=== PATIENT | female | born 1985 | race Two or more races ===

== ENCOUNTER 2019-08-22 07:46 | Inpatient (IN) | payer OTHER ==
[~2019-08-22] VITALS: Ht 160 cm; Wt 63.5 kg
[2019-08-22] MEDS ORDERED: IBUPROFEN 400 MG TABLET. PO PRN (09:00)
[2019-08-22] MEDS ORDERED: TERBUTALINE 1 MG/ML VIAL. SQ PRN (09:00)
[2019-08-22] MEDS ORDERED: LIDOCAINE 1% PF 30 ML VIAL. INJ PRN (09:00)
[2019-08-22] MEDS ORDERED: OXYTOCIN 30 UNIT/500 ML PREMIX 500 ML IV PRN ×3 (09:00→18:30)
[2019-08-22] MEDS ORDERED: fentaNYL PF VIAL 100 MCG/2 ML VIAL IV PRN (09:00)
[2019-08-22] MEDS ORDERED: 0.9 % SODIUM CHLORIDE 10 ML DISP.SYRIN. IV PRN ×2 (09:00→18:30)
--- NOTE | 2019-08-22 09:27 | PDOC1 ---
OB - History Hx of Present Care: Good Care Ultrasounds: Normal mid trimester US Obstetrical Complications: None Medical Complications: None Past Family/Social History * Past Medical, Surgical, Family and Obstetric Histories reviewed from chart. Rubella: Immune RPR/VDRL: Negative GBS Status: Unknown HBsAG: Negative OB - Chief Complaint & HPI Date of Admission: Date of Admission: Aug 22, 2019 at 07:46 Chief Complaint/History : 1 Para: 0 EGA: 39 Reason for admission: rupture of membranes Admission Nurse Assessment Rev: Yes OB - Admission Exam Physical Exam HEENT: Normal Heart: Regular Rate Lungs: Clear Abdomen: Gravid, Non tender, Soft Extremities: Edema Reflexes: Normal Cervical Dilatation: 1cm Effacement: 50% Station: -3 Amniotic Fluid: Clear Heart Rate: Normal Accelerations: Accelerations Present Decelerations: No decelerations Contractions on Admission: >10 Minutes Apart Intensity: Mild Text A: 39 wks IUP SROM GBS unknown P: Admit labor management with pitocin. Start Pen G prophylaxis for GBS unknown status. RADHA KELLER Jr, MD Aug 22, 2019 09:27
[2019-08-22 09:30] LABS: BASO % 0 % (0-3); EOS % 0 % (0-3); HEMATOCRIT 37.2 % (36.0-47.0); HEMOGLOBIN 12.9 g/dL (12.0-15.5); LYMPH # 1.6 x10^3/uL (1.0-4.8); LYMPH % 16 % (24-48); MEAN CORPUSCULAR HEMOGLOBIN 33 pg (25-35); MEAN CORPUSCULAR HGB CONC 35 g/dL (31-37); MEAN CORPUSCULAR VOLUME 96 fL (79-100); MONO # 0.6 x10^3/uL (0.0-1.1); MONO % 6 % (0-9); NEUT # 7.7 x10^3/uL (1.8-7.7); NEUT % 77 % (31-73); PLATELET COUNT 167 x10^3/uL (140-400); RED BLOOD COUNT 3.89 x10^6/uL (3.50-5.40); RED CELL DISTRIBUTION WIDTH 12.7 % (11.5-14.5)
[2019-08-22 09:30] LABS: BILIRUBIN,URINE NEGATIVE (NEG); CLARITY,URINE CLEAR; COLOR,URINE YELLOW; NITRITE,URINE NEGATIVE (NEG); PROTEIN,URINE NEGATIVE (NEG-TRACE); UROBILINOGEN,URINE 0.2 mg/dL (0.2 mg/dL)
[2019-08-22] MEDS ORDERED: PENICILLIN G K 5,000,000 UNIT in IV DEXTROSE 5% 100ML 100 ML IV ONE (09:30)
--- NOTE | 2019-08-22 09:30 | RAD ---
Indication: Injury presentation. History of breech presentation. TECHNIQUE: Limited ultrasound OB COMPARISON: None FINDINGS: Single intrauterine seen in vertex presentation. Placenta is fundal in location. Heart rate 139 bpm. Low Amniotic fluid index measuring 1.6 cm. IMPRESSION: As above. Electronically signed by: Richard Levine DO (08/22/2019 9:27 AM) [facility]
[2019-08-22 09:47] LABS: BACTERIA,URINE FEW /HPF (0-FEW); RBC,URINE OCC /HPF (0-2); SQUAMOUS EPITHELIAL CELL,UR MANY /LPF; WBC,URINE OCC /HPF (0-4)
[2019-08-22] MEDS: IV RINGERS,LACTATED 1000ML 1,000 ML IV PRN ×2 (10:06→14:47)
[2019-08-22] MEDS ORDERED: PENICILLIN G K 2,500,000 UNIT in IV DEXTROSE 5% 50 ML IV SCH (13:00)
[2019-08-22] MEDS ORDERED: PANTOPRAZOLE 40 MG TABLET.DR. PO ONE ×3 (13:00→18:30)
--- NOTE | 2019-08-22 18:19 | PDOC ---
VAGINAL DELIVERY DATE DATE: 08/22/19 TIME: 18:12 : 1 Para: 1 EGA: 39 VAGINAL DELIVERY: VTX VACCUM ASSISTED: Yes NUMBER OF PULLS two NUMBER OF POP OFFS none MAXIMUM PRESSURE 600 mmhg PLACENTA: Spontaneous 8/9 SEX: Male WEIGHT Weight [3470 gm ] Nuchal Cord: No Amniotic Fluid: Clear PAIN: Natural EPISIOTOMY: No EXTENSION: Yes (2nd degree midline laceration and Left vaginal sidewall laceration) REPAIRED WITH 2-0 vicryl EBL 400 ml COMPLICATIONS none CONDITION stable Signs of Intrauterine Infectio: None Shoulder Dystocia: No, Suprapubic Pressure (poor maternal pushing efforts) RADHA KELLER Jr, MD Aug 22, 2019 18:19
[2019-08-22] MEDS ORDERED: PHENYLEPH/MINERAL OIL/PETROLAT RECTAL OINTMENT TUBE. RC PRN (18:30)
[2019-08-22] MEDS ORDERED: FAMOTIDINE 20 MG TABLET. PO ONE (18:30)
[2019-08-22] MEDS ORDERED: MMR per PROTOCOL. MC PRN (18:30)
[2019-08-22] MEDS ORDERED: SIMETHICONE 80 MG TAB.CHEW PO PRN (18:30)
[2019-08-22] MEDS ORDERED: ACETAMINOPHEN 325 MG TABLET. PO PRN (18:30)
[2019-08-22] MEDS ORDERED: HYDROCORTISONE 1% TOPICAL OINTMENT 30GM TUBE. TP PRN (18:30)
[2019-08-22] MEDS ORDERED: MAG HYDROX/ALUMINUM HYD/SIMETH 30 ML ORAL.SUSP PO PRN (18:30)
[2019-08-22] MEDS ORDERED: diphenhydrAMINE HCL 25 MG CAPSULE PO PRN (18:30)
[2019-08-22] MEDS ORDERED: BENZOCAINE 20% TOPICAL AEROSOL SPRAY 57GM CAN. TP PRN (18:30)
[2019-08-22] MEDS ORDERED: oxyCODONE/APAP 5/325 1 TAB TABLET PO PRN (18:30)
[2019-08-22] MEDS ORDERED: MAGNESIUM HYDROXIDE 2,400 MG/30 ML ORAL.SUSP. PO PRN (18:30)
[2019-08-22] MEDS ORDERED: ZOLPIDEM 5 MG TABLET. PO PRN (18:30)
[2019-08-22 20:16] VITALS: BP 125/74
[2019-08-22 21:00] VITALS: BP 131/65
[2019-08-22 22:25] VITALS: BP 107/55
[2019-08-22] MEDS: IBUPROFEN 400 MG TABLET. PO PRN (23:49)
[2019-08-23 02:00] VITALS: BP 112/52
[2019-08-23 05:46] LABS: BASO % 0 % (0-3); EOS % 0 % (0-3); HEMATOCRIT 30.4 % (36.0-47.0); HEMOGLOBIN 10.8 g/dL (12.0-15.5); LYMPH # 1.6 x10^3/uL (1.0-4.8); LYMPH % 10 % (24-48); MEAN CORPUSCULAR HEMOGLOBIN 34 pg (25-35); MEAN CORPUSCULAR HGB CONC 36 g/dL (31-37); MEAN CORPUSCULAR VOLUME 95 fL (79-100); MONO # 1.2 x10^3/uL (0.0-1.1); MONO % 7 % (0-9); NEUT % 83 % (31-73); PLATELET COUNT 118 x10^3/uL (140-400); RED BLOOD COUNT 3.21 x10^6/uL (3.50-5.40); RED CELL DISTRIBUTION WIDTH 13.1 % (11.5-14.5); WHITE BLOOD COUNT 15.7 x10^3/uL (4.0-11.0)
[2019-08-23 06:18] VITALS: BP 99/58
[2019-08-23 07:04] LABS: % BANDS 11 % (0-9); % LYMPHS 9 % (24-48); % MONOS 5 % (0-10); % SEGS 75 % (35-66)
[2019-08-23 07:05] LABS: PLT ESTIMATE DECREASED (ADEQUATE)
[2019-08-23] MEDS: FERROUS SULFATE 325 MG TABLET. PO SCH ×2 (08:00→17:00)
[2019-08-23 08:10] VITALS: BP 114/56
[2019-08-23] MEDS: DOCUSATE SODIUM 100 MG CAPSULE. PO PRN ×2 (08:30→17:04)
[2019-08-23 12:10] VITALS: BP 105/58
[2019-08-23 17:00] VITALS: BP 122/66
--- NOTE | 2019-08-23 18:06 | PDOC ---
OB Progress Note Date of Service 08/23/19 Time of Evaluation 1805 Notes Pt. feeling well. Polanco in place due to periurethral edema. Lab Laboratory Tests Test 08/22/19 07:55 08/22/19 08:37 08/23/19 05:10 Urine Collection Type Void Urine Color Yellow Urine Clarity Clear Urine pH 6.0 Urine Specific [place] 1.020 Urine Protein Negative mg/dL (NEG-TRACE) Urine Glucose (UA) Negative mg/dL (NEG) Urine Ketones (Stick) Negative mg/dL (NEG) Urine Blood Small (NEG) Urine Nitrite Negative (NEG) Urine Bilirubin Negative (NEG) Urine Urobilinogen Dipstick 0.2 mg/dL (0.2 mg/dL) Urine Leukocyte Esterase Negative (NEG) Urine RBC Occ /HPF (0-2) Urine WBC Occ /HPF (0-4) Urine Squamous Epithelial Cells Many /LPF Urine Bacteria Few /HPF (0-FEW) Urine Mucus Mod /LPF White Blood Count 10.0 x10^3/uL (4.0-11.0) 15.7 x10^3/uL (4.0-11.0) Red Blood Count 3.89 x10^6/uL (3.50-5.40) 3.21 x10^6/uL (3.50-5.40) Hemoglobin 12.9 g/dL (12.0-15.5) 10.8 g/dL (12.0-15.5) Hematocrit 37.2 % (36.0-47.0) 30.4 % (36.0-47.0) Mean Corpuscular Volume 96 fL (79-100) 95 fL (79-100) Mean Corpuscular Hemoglobin 33 pg (25-35) 34 pg (25-35) Mean Corpuscular Hemoglobin Concent 35 g/dL (31-37) 36 g/dL (31-37) Red Cell Distribution Width 12.7 % (11.5-14.5) 13.1 % (11.5-14.5) Platelet Count 167 x10^3/uL (140-400) 118 x10^3/uL (140-400) Neutrophils (%) (Auto) 77 % (31-73) 83 % (31-73) Lymphocytes (%) (Auto) 16 % (24-48) 10 % (24-48) Monocytes (%) (Auto) 6 % (0-9) 7 % (0-9) Eosinophils (%) (Auto) 0 % (0-3) 0 % (0-3) Basophils (%) (Auto) 0 % (0-3) 0 % (0-3) Neutrophils # (Auto) 7.7 x10^3/uL (1.8-7.7) 13.0 x10^3/uL (1.8-7.7) Lymphocytes # (Auto) 1.6 x10^3/uL (1.0-4.8) 1.6 x10^3/uL (1.0-4.8) Monocytes # (Auto) 0.6 x10^3/uL (0.0-1.1) 1.2 x10^3/uL (0.0-1.1) Eosinophils # (Auto) 0.0 x10^3/uL (0.0-0.7) 0.0 x10^3/uL (0.0-0.7) Basophils # (Auto) 0.0 x10^3/uL (0.0-0.2) 0.0 x10^3/uL (0.0-0.2) Treponema pallidum Antibody Nonreactive (Nonreactive) Segmented Neutrophils % 75 % (35-66) Band Neutrophils % 11 % (0-9) Lymphocytes % 9 % (24-48) Monocytes % 5 % (0-10) Platelet Estimate Decreased (ADEQUATE) Laboratory Tests Test 08/23/19 05:10 White Blood Count 15.7 x10^3/uL (4.0-11.0) Red Blood Count 3.21 x10^6/uL (3.50-5.40) Hemoglobin 10.8 g/dL (12.0-15.5) Hematocrit 30.4 % (36.0-47.0) Mean Corpuscular Volume 95 fL (79-100) Mean Corpuscular Hemoglobin 34 pg (25-35) Mean Corpuscular Hemoglobin Concent 36 g/dL (31-37) Red Cell Distribution Width 13.1 % (11.5-14.5) Platelet Count 118 x10^3/uL (140-400) Neutrophils (%) (Auto) 83 % (31-73) Lymphocytes (%) (Auto) 10 % (24-48) Monocytes (%) (Auto) 7 % (0-9) Eosinophils (%) (Auto) 0 % (0-3) Basophils (%) (Auto) 0 % (0-3) Neutrophils # (Auto) 13.0 x10^3/uL (1.8-7.7) Lymphocytes # (Auto) 1.6 x10^3/uL (1.0-4.8) Monocytes # (Auto) 1.2 x10^3/uL (0.0-1.1) Eosinophils # (Auto) 0.0 x10^3/uL (0.0-0.7) Basophils # (Auto) 0.0 x10^3/uL (0.0-0.2) Segmented Neutrophils % 75 % (35-66) Band Neutrophils % 11 % (0-9) Lymphocytes % 9 % (24-48) Monocytes % 5 % (0-10) Platelet Estimate Decreased (ADEQUATE) Medications Current Medications Sodium Chloride (Normal Saline Flush) 3 ml QSHIFT PRN IV AFTER MEDS AND BLOOD DRAWS; Start 08/22/19 at 09:00 Ringer's Solution 1,000 ml @ 125 mls/hr Q8H PRN IV PER PROTOCOL Last administered on 08/22/19at 14:47; Start 08/22/19 at 09:00; Stop 08/22/19 at 21:25; Status DC Fentanyl Citrate (Fentanyl 2ml Vial) 100 mcg PRN Q10MIN PRN IV Labor pain Last administered on 08/22/19at 14:56; Start 08/22/19 at 09:00 Terbutaline Sulfate (Brethine) 0.25 mg 1X PRN PRN SQ SEE COMMENTS; Start 08/22/19 at 09:00; Stop 08/23/19 at 08:59; Status DC Lidocaine HCl (Xylocaine 1% Pf 30ml Vial) 30 ml 1X PRN PRN INJ SEE COMMENTS Last administered on 08/22/19at 18:32; Start 08/22/19 at 09:00; Stop 08/24/19 at 08:59 Oxytocin/Sodium Chloride 500 ml @ 0 mls/hr CONT PRN IV SEE I/O RECORD Last administered on 08/22/19at 10:07; Start 08/22/19 at 09:00 Oxytocin/Sodium Chloride 500 ml @ 0 mls/hr CONT PRN PRN IV Post delivery bleeding; Start 08/22/19 at 09:00; Stop 08/22/19 at 21:26; Status DC Ibuprofen (Motrin) 800 mg PRN Q6HRS PRN PO MODERATE PAIN Last administered on 08/23/19at 08:33; Start 08/22/19 at 09:00; Stop 08/23/19 at 09:31; Status DC Penicillin G Potassium 9122803 unit/Dextrose 100 ml @ 100 mls/hr 1X ONCE IV ; Start 08/22/19 at 09:30; Stop 08/22/19 at 10:29; Status DC Penicillin G Potassium [id number] unit/Dextrose 50 ml @ 100 mls/hr Q4H IV ; Start 08/22/19 at 13:00; Stop 08/22/19 at 21:24; Status DC Pantoprazole Sodium (Protonix) 40 mg 1X ONCE PO Last administered on 08/22/19at 13:21; Start 08/22/19 at 13:00; Stop 08/22/19 at 13:11; Status DC Sodium Chloride (Normal Saline Flush) 10 ml QSHIFT PRN IV AFTER MEDS AND BLOOD DRAWS; Start 08/22/19 at 18:30 Oxytocin/Sodium Chloride 500 ml @ 62.5 mls/hr CONT PRN IV SEE I/O RECORD; Start 08/22/19 at 18:30; Stop 08/23/19 at 02:29; Status DC Acetaminophen (Tylenol) 650 mg PRN Q6HRS PRN PO MILD PAIN / TEMP; Start 08/22/19 at 18:30 Ibuprofen (Motrin) 800 mg PRN Q8HRS PRN PO INFLAMMATION/PAIN PREVENTION Last administered on 08/22/19at 23:49; Start 08/22/19 at 18:30 Docusate Sodium (Colace) 100 mg PRN BID PRN PO CONSTIPATION Last administered on 08/23/19at 17:04; Start 08/22/19 at 18:30 Magnesium Hydroxide (Milk Of Magnesia) 2,400 mg PRN DAILY PRN PO CONSTIPATION; Start 08/22/19 at 18:30 Al Hydroxide/Mg Hydroxide (Mylanta Plus Xs) 30 ml PRN Q4HRS PRN PO HEARTBURN / GAS; Start 08/22/19 at 18:30 Simethicone (Gas-X) 80 mg PRN AFTMEALHC PRN PO GAS / BLOATING; Start 08/22/19 at 18:30 Diphenhydramine HCl (Benadryl) 25 mg PRN Q6HRS PRN PO ITCHING; Start 08/22/19 at 18:30 Benzocaine (Americaine) 1 spray PRN QID PRN TP TOPICAL PAIN; Start 08/22/19 at 18:30 Phenyleph/Shark Oil/Min Oil/Petrol (Preparation H) 1 chantelle PRN QID PRN RC RECTAL PAIN; Start 08/22/19 at 18:30 Hydrocortisone (Cortaid) 1 chantelle PRN QID PRN TP PERINEAL PAIN; Start 08/22/19 at 18:30 Ferrous Sulfate (Feosol) 325 mg BIDWMEALS PO ; Start 08/23/19 at 08:00 Zolpidem Tartrate (Ambien) 5 mg PRN QHS PRN PO INSOMNIA, MAY REPEAT X1; Start 08/22/19 at 18:30 Info (Do NOT chart on this placeholder) 1 ea 1X PRN PRN MC SEE COMMENTS; Start 08/22/19 at 18:30 Info (Do NOT chart on this placeholder) 1 ea 1X PRN PRN MC SEE COMMENTS; Start 08/22/19 at 18:30 Oxycodone/ Acetaminophen (Percocet 5/325) 2 tab PRN Q4HRS PRN PO MODERATE PAIN, SEVERE PAIN; Start 08/22/19 at 18:30 Famotidine (Pepcid) 40 mg 1X ONCE PO ; Start 08/22/19 at 18:30; Stop 08/22/19 at 18:31; Status UNV Pantoprazole Sodium (Protonix) 40 mg 1X ONCE PO Last administered on 08/22/19at 18:32; Start 08/22/19 at 18:30; Stop 08/22/19 at 18:42; Status DC Pantoprazole Sodium (Protonix) 40 mg 1X ONCE PO ; Start 08/22/19 at 18:30; Stop 08/22/19 at 18:41; Status DC Exam Abd: soft, mild tendernes, fundus firm Pelvic: edema improved. Polanco in place in draining well. Assessment PPD#1 s/p Plan of Care: Continue current Tx, Mgmt (Remove polanco in am.) RADHA KELLER Jr, MD Aug 23, 2019 18:06
[2019-08-23 20:45] VITALS: BP 116/65
[2019-08-24 04:00] VITALS: BP 111/59
--- NOTE | 2019-08-24 08:13 | PDOC3 ---
OB DISCHARGE SUMMARY DATE OF ADMISSION: 08/22/19 DATE OF DISCHARGE: 08/24/19 REASON FOR ADMISSION: Onset of labor INTRAPARTUM PROCEDURES: Spontanous Vag Deliv DISCHARGE DIAGNOSIS: Term Delivered DISCHARGE INFORMATION: Activity (ad nidia), Diet (regular), Instructions (pelvic rest x 6 wks) HOSPITAL COURSE Term gestation delivered vaginally without complications. RADHA KELLER Jr, MD Aug 24, 2019 08:13
[2019-08-24] MEDS ORDERED: IBUP-1027 PO (08:14)
--- NOTE | 2019-08-24 08:15 | DISCH ---
DISCHARGE INSTRUCTIONS Condition on Discharge Condition on Discharge: Stable Activity After Discharge Activity Instructions for Disc: Activity as tolerated Lifting Instructions after Dis: No heavy lifting Driving Instructions after Dis: Do not drive today Diet after Discharge Diet after Discharge: Regular Contacting the DRAnjana after DC Call your doctor for: Concerns you may have Follow-Up Follow up with: Jj in 6 wks RADHA KELLER Jr, MD Aug 24, 2019 08:14
[2019-08-24] MEDS: IBUPROFEN 400 MG TABLET. PO PRN (12:33)
[2019-08-24] MEDS: DOCUSATE SODIUM 100 MG CAPSULE. PO PRN (12:33)
[2019-08-24 12:45] VITALS: BP 122/79
--- NOTE | 2019-08-24 12:48 | NUR ---
Discharge Discharge instructions given to patient at this time, no questions or concerns noted. To follow up in 6 weeks at [facility].
== END 2019-08-24 13:59 | disposition home or self-care (01) | DRG 806 ==
LOC: 3 SO LND 07:46 → OBSVTOIN 07:46 → 3 NORTH 21:00
PROVIDERS: ADMIT Obstetrics & Gynecology; ATTEND Obstetrics & Gynecology
PROC: 10D07Z6 Extraction of Products of Conception, Vacuum, Via Natural or Artificial Opening (ICD-10-PCS; principal; 2019-08-22)
PROC: 0KQM0ZZ Repair Perineum Muscle, Open Approach (ICD-10-PCS; 2019-08-22)
DX: O70.1 Second degree perineal laceration during delivery (principal); R71.0 Precipitous drop in hematocrit; Z37.0 Single live birth; Z3A.39 39 weeks gestation of pregnancy; O75.89 Other specified complications of labor and delivery
CPT/HCPCS: 36415; 76815; 81001; 85007; 85025; 86592; 86850; 86900; 86901; J2590; J3010; J7120; G0378

== ENCOUNTER 2022-03-10 17:41 | Inpatient (IN) | payer SELFPAY ==
[~2022-03-10] VITALS: Ht 158.5 cm; Wt 79.5 kg
[~2022-03-10 17:41] MED LIST: IBUP-1027 PO
[2022-03-10] MEDS ORDERED: IV RINGERS,LACTATED 1000ML 1,000 ML IV SCH ×2 (18:45→20:00)
[2022-03-10 19:18] LABS: BACTERIA,URINE MANY /HPF (0-FEW); RBC,URINE TNTC /HPF (0-2); WBC,URINE 20-40 /HPF (0-4)
[2022-03-10 19:30] VITALS: BP 130/65
[2022-03-10] MEDS ORDERED: OXYTOCIN 30 UNIT/500 ML PREMIX 500 ML IV PRN ×2 (20:00)
[2022-03-10] MEDS ORDERED: BUTORPHANOL 2 MG/ML VIAL. IVP PRN ×2 (20:00)
[2022-03-10] MEDS ORDERED: LIDOCAINE 1% PF 30 ML VIAL. INJ PRN (20:00)
[2022-03-10] MEDS ORDERED: ACETAMINOPHEN 325 MG TABLET. PO PRN (20:00)
[2022-03-10] MEDS ORDERED: 0.9 % SODIUM CHLORIDE 10 ML DISP.SYRIN. IV PRN (20:00)
[2022-03-10] MEDS ORDERED: TERBUTALINE 1 MG/ML VIAL. SQ PRN (20:00)
[2022-03-10 20:24] LABS: BASO % 0 % (0-3); EOS % 0 % (0-3); HEMATOCRIT 37.9 % (36.0-47.0); HEMOGLOBIN 13.4 g/dL (12.0-15.5); LYMPH # 1.8 x10^3/uL (1.0-4.8); LYMPH % 17 % (24-48); MEAN CORPUSCULAR HEMOGLOBIN 33 pg (25-35); MEAN CORPUSCULAR HGB CONC 36 g/dL (31-37); MEAN CORPUSCULAR VOLUME 94 fL (79-100); MONO # 0.7 x10^3/uL (0.0-1.1); MONO % 7 % (0-9); NEUT # 7.8 x10^3/uL (1.8-7.7); NEUT % 75 % (31-73); PLATELET COUNT 196 x10^3/uL (140-400); RED BLOOD COUNT 4.05 x10^6/uL (3.50-5.40); RED CELL DISTRIBUTION WIDTH 13.7 % (11.5-14.5); WHITE BLOOD COUNT 10.3 x10^3/uL (4.0-11.0)
[2022-03-10 21:59] LABS: INFLUENZA A PATIENT POSITIVE (NEGATIVE); INFLUENZA B PATIENT NEGATIVE (NEGATIVE)
[2022-03-11] VITALS (9 sets, daily range): BP systolic 102–128; BP diastolic 54–71
--- NOTE | 2022-03-11 00:18 | PDOC1 ---
[facility] H&P Date of Admission: Date of Admission: Mar 10, 2022 at 17:41 History of Present Illness: EDC: 03/17/22 LMP: 06/10/21 36y @ 39.1 by L=22 presents with ctxs. She was found to 3 cm on presentation. During her eval she had SROM and was subsequently admitted. The pt has had a relatively uncomplicated outside of her AMA. PMH: Denies PSH: Denies Meds: PNV All: NKDA OBHx: TSVD x 1 SH: no tob, no EtOH FH: noncontributory Medications: Meds: Current Medications Medications (Trade) Dose Ordered Sig/Christian Route PRN Reason Start Time Stop Time Status Last Admin Dose Admin Ringer's Solution 1,000 ml @ 125 mls/hr Q8H IV 03/10/22 20:00 03/10/22 21:12 Butorphanol Tartrate (Stadol) 2 mg PRN Q1HR PRN IVP Severe labor pain 03/10/22 20:00 03/10/22 22:22 Oxytocin 500 ml @ 0 mls/hr CONT PRN PRN IV Post delivery bleeding 03/10/22 20:00 03/10/22 23:51 Allergies: Coded Allergies: No Known Drug Allergies (Unverified , 08/22/19) Physical Exam: Vital Signs: Vital Signs Date Time Temp Pulse Resp B/P (MAP) Pulse Ox O2 Delivery O2 Flow Rate FiO2 03/10/22 22:22 20 Room Air PE: GENERAL: No apparent distress. Alert and oriented. HEENT: Head normocephalic, atraumatic. NECK: Supple LUNGS: Clear to auscultation. HEART: RRR, S1, S2 present, pulses intact ABDOMEN: Soft, positive bowel sounds. EXTREMITIES: No cyanosis or edema. NEUROLOGIC: Normal speech, normal tone PSYCHIATRIC: Normal affect, normal mood. SKIN: No ulceration. FHT: 150s +acels/no decels/mLTV [place]: 35 min SVE: 8/C/-1 Labs: Laboratory Tests Test 03/10/22 18:00 03/10/22 19:35 03/10/22 20:30 Urine Collection Type Unknown Urine Color (Auto) Light orange Urine Turbidity Hazy Urine pH (Auto) 5.5 (<5.0-8.0) Urine Specific [place] 1.011 (1.000-1.030) Urine Protein (Auto) Negative mg/dL (Negative) Urine Glucose (Auto)(UA) Negative mg/dL (Negative) Urine Ketones (Auto) 10 mg/dL (Negative) Urine Blood (Auto) Large (Negative) Urine Nitrite Negative (Negative) Urine Bilirubin (Auto) Negative (Negative) Urine Urobilinogen (Auto) Normal mg/dL (Normal) Urine Leukocyte Esterase (Auto) Moderate (Negative) Urine RBC Tntc /HPF (0-2) Urine WBC 20-40 /HPF (0-4) Urine Squamous Epithelial Cells Many /LPF Urine Bacteria Many /HPF (0-FEW) White Blood Count 10.3 x10^3/uL (4.0-11.0) Red Blood Count 4.05 x10^6/uL (3.50-5.40) Hemoglobin 13.4 g/dL (12.0-15.5) Hematocrit 37.9 % (36.0-47.0) Mean Corpuscular Volume 94 fL (79-100) Mean Corpuscular Hemoglobin 33 pg (25-35) Mean Corpuscular Hemoglobin Concent 36 g/dL (31-37) Red Cell Distribution Width 13.7 % (11.5-14.5) Platelet Count 196 x10^3/uL (140-400) Neutrophils (%) (Auto) 75 % (31-73) H Lymphocytes (%) (Auto) 17 % (24-48) L Monocytes (%) (Auto) 7 % (0-9) Eosinophils (%) (Auto) 0 % (0-3) Basophils (%) (Auto) 0 % (0-3) Neutrophils # (Auto) 7.8 x10^3/uL (1.8-7.7) H Lymphocytes # (Auto) 1.8 x10^3/uL (1.0-4.8) Monocytes # (Auto) 0.7 x10^3/uL (0.0-1.1) Eosinophils # (Auto) 0.0 x10^3/uL (0.0-0.7) Basophils # (Auto) 0.0 x10^3/uL (0.0-0.2) Treponema pallidum Antibody Nonreactive (Nonreactive) Influenza Type A Antigen Positive (NEGATIVE) Influenza Type B Antigen Negative (NEGATIVE) SARS-CoV-2 Antigen (Rapid) Negative (NEGATIVE) Laboratory Tests 03/10/22 19:35 Laboratory Tests 03/10/22 19:35 Assessment & Plan: A/P 36y @ 39.1 by L=22 1.) Active labor/SROM 2.) AMA 3.) Late presentation to care 4.) Elevated GTT - 1 of 4 values of the 3hr GTT elevated 5.) Covid vaccine 11/22/21 6.) TDAP given 12/27/21 7.) Flu vaccine given 12/27/21 8.) Fetus cat I FHT 9.) GBS neg ANITA RODAS MD Mar 11, 2022 00:18
--- NOTE | 2022-03-11 00:18 | PDOC4 ---
VAGINAL DELIVERY DATE DATE: 03/11/22 TIME: 00:18 TIME Patient delivered a viable female over intact perineum at 000.9 Wt 7 lb 1 oz. Apgars 8/9. Placenta delivered spontaneously, intact with 3VC. No lacerations noted. Good hemostasis noted. 20 U of Pit given with IVF. EBL 200 cc. WEIGHT Weight [ ] ANITA RODAS MD Mar 11, 2022 00:18
[2022-03-11] MEDS ORDERED: SIMETHICONE 80 MG TAB.CHEW PO PRN (00:30)
[2022-03-11] MEDS ORDERED: MMR per PROTOCOL. MC PRN (00:30)
[2022-03-11] MEDS ORDERED: HYDROCORTISONE 1% TOPICAL OINTMENT 30GM TUBE. TP PRN (00:30)
[2022-03-11] MEDS ORDERED: MAG HYDROX/ALUMINUM HYD/SIMETH 30 ML ORAL.SUSP PO PRN (00:30)
[2022-03-11] MEDS ORDERED: ZOLPIDEM 5 MG TABLET. PO PRN (00:30)
[2022-03-11] MEDS ORDERED: ACETAMINOPHEN 325 MG TABLET. PO PRN (00:30)
[2022-03-11] MEDS ORDERED: BENZOCAINE 20% TOPICAL AEROSOL SPRAY 57GM CAN. TP PRN (00:30)
[2022-03-11] MEDS ORDERED: MAGNESIUM HYDROXIDE 2,400 MG/30 ML ORAL.SUSP. PO PRN (00:30)
[2022-03-11] MEDS ORDERED: TDaP (BOOSTRIX) per PROTOCOL. MC PRN (00:30)
[2022-03-11] MEDS ORDERED: oxyCODONE/APAP 5/325 1 TAB TABLET PO PRN (00:30)
[2022-03-11] MEDS ORDERED: PHENYLEPH/MINERAL OIL/PETROLAT RECTAL OINTMENT TUBE. RC PRN (00:30)
[2022-03-11] MEDS ORDERED: 0.9 % SODIUM CHLORIDE 10 ML DISP.SYRIN. IV PRN (00:30)
[2022-03-11] MEDS ORDERED: OXYTOCIN 30 UNIT/500 ML PREMIX 500 ML IV PRN (00:30)
[2022-03-11] MEDS ORDERED: diphenhydrAMINE HCL 25 MG CAPSULE PO PRN (00:30)
[2022-03-11] MEDS: PRENATAL MULTIVITAMIN TABLET. PO SCH (08:53)
[2022-03-11] MEDS: DOCUSATE SODIUM 100 MG CAPSULE. PO PRN ×2 (08:53→17:38)
[2022-03-11] MEDS: IBUPROFEN 400 MG TABLET. PO PRN ×2 (08:54→17:39)
[2022-03-12 04:40] LABS: HEMATOCRIT 36.3 % (36.0-47.0); HEMOGLOBIN 12.5 g/dL (12.0-15.5); RED BLOOD COUNT 3.88 x10^6/uL (3.50-5.40); RED CELL DISTRIBUTION WIDTH 13.8 % (11.5-14.5)
[2022-03-12 05:05] VITALS: BP 118/67
[2022-03-12] MEDS: IBUPROFEN 400 MG TABLET. PO PRN ×2 (05:43→14:14)
--- NOTE | 2022-03-12 06:34 | NUR ---
Per the [facility] Elopement Policy, the patient is not deemed an elopement risk.
--- NOTE | 2022-03-12 07:00 | NUR ---
Per [facility] elopement policy, pt. not deemed an elopement risk.
[2022-03-12] MEDS ORDERED: FERROUS SULFATE 325 MG TABLET. PO SCH (08:00)
[2022-03-12] MEDS: DOCUSATE SODIUM 100 MG CAPSULE. PO PRN (08:19)
[2022-03-12] MEDS: PRENATAL MULTIVITAMIN TABLET. PO SCH (08:19)
[2022-03-12 09:25] VITALS: BP 116/77
--- NOTE | 2022-03-12 09:25 | PDOC ---
MOBILE PET GROOMER PROGRESS NOTE Date of Service: DATE: 03/12/22 TIME: 09:20 Subjective: 36 y/o female is PPD #1 status post spontaneous vaginal delivery. Patient has no complaints or flu-like symptoms. Lochia minimal. She states her pain is well controlled with oral pain medication. Objective: Vital Signs: Vital Signs Date Time Temp Pulse Resp B/P (MAP) Pulse Ox O2 Delivery O2 Flow Rate FiO2 03/11/22 08:43 99.1 95 16 115/66 (82) 95 Room Air 99.1 Vital Signs Date Time Temp Pulse Resp B/P (MAP) Pulse Ox O2 Delivery O2 Flow Rate FiO2 03/12/22 05:05 98.2 68 16 118/67 (84) 98 Room Air 98.2 Labs: Laboratory Tests Test 03/12/22 03:40 White Blood Count 9.0 x10^3/uL (4.0-11.0) Red Blood Count 3.88 x10^6/uL (3.50-5.40) Hemoglobin 12.5 g/dL (12.0-15.5) Hematocrit 36.3 % (36.0-47.0) Mean Corpuscular Volume 94 fL (79-100) Mean Corpuscular Hemoglobin 32 pg (25-35) Mean Corpuscular Hemoglobin Concent 34 g/dL (31-37) Red Cell Distribution Width 13.8 % (11.5-14.5) Platelet Count 165 x10^3/uL (140-400) Laboratory Tests 03/12/22 03:40 Laboratory Tests 03/12/22 03:40 Physical Exam: GENERAL: No apparent distress. Alert and oriented. HEENT: Head normocephalic, atraumatic. NECK: Supple LUNGS: Clear to auscultation. HEART: RRR, S1, S2 present, pulses intact ABDOMEN: Soft, positive bowel sounds. EXTREMITIES: No cyanosis or edema. NEUROLOGIC: Normal speech, normal tone PSYCHIATRIC: Normal affect, normal mood. SKIN: No ulceration. Uterus: uterus firm below umbilicus Assessment & Plan: 36 y/o 1. PPD #1 status post . 2. Routine care. 3. Influenza positive screen: Patient is asymptomatic. 4. Discharge home. 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 5. Follow-up in 6 weeks. JEOVANNY MUHAMMAD MD Mar 12, 2022 09:25
[2022-03-12] MEDS ORDERED: PREN1TAB58 PO (09:32)
[2022-03-12] MEDS ORDERED: IBUP-1060 PO (09:32)
--- NOTE | 2022-03-12 09:34 | DISCH ---
DISCHARGE INSTRUCTIONS Condition on Discharge Condition on Discharge: Stable Activity After Discharge Activity Instructions for Disc: Activity as tolerated Lifting Instructions after Dis: No heavy lifting Driving Instructions after Dis: Do not drive today Sexual Activity Restrictions: pelvic rest for 6 weeks Diet after Discharge Diet after Discharge: Regular Contacting the DR. after DC Call your doctor for: If your condition worsens Follow-Up Follow up with: [facility] JEOVANNY MUHAMMAD MD Mar 12, 2022 09:34
--- NOTE | 2022-03-12 09:39 | PDOC3 ---
Discharge Summary Visit Information Date of Admission: Mar 10, 2022 Date of Discharge: Mar 12, 2022 Admitting Diagnosis: 39 weeks, labor Final Diagnosis Spontaneous vaginal delivery Brief Hospital Course Allergies Allergies Coded Allergies Type Severity Reaction Last Updated Verified No Known Drug Allergies 08/22/19 No Vital Signs Vital Signs Date Time Temp Pulse Resp B/P (MAP) Pulse Ox O2 Delivery O2 Flow Rate FiO2 03/12/22 05:05 98.2 68 16 118/67 (84) 98 Room Air 98.2 Lab Results Laboratory Tests Test 03/10/22 10:30 03/10/22 18:00 03/10/22 19:35 03/10/22 20:30 Coronavirus (COVID-19)(PCR) Not detected (NOT DETECTD) Urine Collection Type Unknown Urine Color (Auto) Light orange Urine Turbidity Hazy Urine pH (Auto) 5.5 (<5.0-8.0) Urine Specific [place] 1.011 (1.000-1.030) Urine Protein (Auto) Negative mg/dL (Negative) Urine Glucose (Auto)(UA) Negative mg/dL (Negative) Urine Ketones (Auto) 10 mg/dL (Negative) Urine Blood (Auto) Large (Negative) Urine Nitrite Negative (Negative) Urine Bilirubin (Auto) Negative (Negative) Urine Urobilinogen (Auto) Normal mg/dL (Normal) Urine Leukocyte Esterase (Auto) Moderate (Negative) Urine RBC Tntc /HPF (0-2) Urine WBC 20-40 /HPF (0-4) Urine Squamous Epithelial Cells Many /LPF Urine Bacteria Many /HPF (0-FEW) White Blood Count 10.3 x10^3/uL (4.0-11.0) Red Blood Count 4.05 x10^6/uL (3.50-5.40) Hemoglobin 13.4 g/dL (12.0-15.5) Hematocrit 37.9 % (36.0-47.0) Mean Corpuscular Volume 94 fL (79-100) Mean Corpuscular Hemoglobin 33 pg (25-35) Mean Corpuscular Hemoglobin Concent 36 g/dL (31-37) Red Cell Distribution Width 13.7 % (11.5-14.5) Platelet Count 196 x10^3/uL (140-400) Neutrophils (%) (Auto) 75 % (31-73) Lymphocytes (%) (Auto) 17 % (24-48) Monocytes (%) (Auto) 7 % (0-9) Eosinophils (%) (Auto) 0 % (0-3) Basophils (%) (Auto) 0 % (0-3) Neutrophils # (Auto) 7.8 x10^3/uL (1.8-7.7) Lymphocytes # (Auto) 1.8 x10^3/uL (1.0-4.8) Monocytes # (Auto) 0.7 x10^3/uL (0.0-1.1) Eosinophils # (Auto) 0.0 x10^3/uL (0.0-0.7) Basophils # (Auto) 0.0 x10^3/uL (0.0-0.2) Treponema pallidum Antibody Nonreactive (Nonreactive) Influenza Type A Antigen Positive (NEGATIVE) Influenza Type B Antigen Negative (NEGATIVE) SARS-CoV-2 Antigen (Rapid) Negative (NEGATIVE) Test 03/12/22 03:40 White Blood Count 9.0 x10^3/uL (4.0-11.0) Red Blood Count 3.88 x10^6/uL (3.50-5.40) Hemoglobin 12.5 g/dL (12.0-15.5) Hematocrit 36.3 % (36.0-47.0) Mean Corpuscular Volume 94 fL (79-100) Mean Corpuscular Hemoglobin 32 pg (25-35) Mean Corpuscular Hemoglobin Concent 34 g/dL (31-37) Red Cell Distribution Width 13.8 % (11.5-14.5) Platelet Count 165 x10^3/uL (140-400) Laboratory Tests Test 03/12/22 03:40 White Blood Count 9.0 x10^3/uL (4.0-11.0) Red Blood Count 3.88 x10^6/uL (3.50-5.40) Hemoglobin 12.5 g/dL (12.0-15.5) Hematocrit 36.3 % (36.0-47.0) Mean Corpuscular Volume 94 fL (79-100) Mean Corpuscular Hemoglobin 32 pg (25-35) Mean Corpuscular Hemoglobin Concent 34 g/dL (31-37) Red Cell Distribution Width 13.8 % (11.5-14.5) Platelet Count 165 x10^3/uL (140-400) Brief Hospital Course Ms. Silva is a 36 old female who presented with active labor. She had uncomplicated course. No active infection despite the influenza screen positive. Assessment Assessment Normal exam. Discharge Information Scheduled Vits W-Ca,Fe,Fa(<1MG) ( Vitamins) 1 Each Tablet, 1 TAB PO DAILY for MDD 1, #30 Ref 1 Prescribed by: JEOVANNY MUHAMMAD MD on 03/12/2232 Scheduled PRN Ibuprofen (Ibuprofen) 800 Mg Tablet, 600 MG PO PRN Q6HRS PRN for PAIN MDD 4 for 7 Days, #28 Ref 0 Prescribed by: JEOVANNY MUHAMMAD MD on 03/12/22931 Discontinued Medications Ibuprofen (Ibuprofen) 400 Mg Tablet, 800 MG PO PRN Q8HRS PRN for INFLAMMATION/PAIN PREVENTION, #30 Ref 1 Prescribed by: RADHA KELLER on 08/24/19 0814 Patient Instructions Patient Instructions Pelvic rest for 6 weeks. Justicifation of Admission Dx: Justifications for Admission: Justification of Admission Dx: Yes (labor) JEOVANNY MUHAMMAD MD Mar 12, 2022 09:39
[2022-03-12 14:15] VITALS: BP 112/78
[2022-03-12] MEDS ORDERED: FAMO-63 PO (14:17)
--- NOTE | 2022-03-12 15:25 | NUR ---
Pt. d/c per order to home with family. No questions verbalized over d/c instructions at this time.
== END 2022-03-12 15:25 | disposition home or self-care (01) | DRG 807 ==
LOC: 3 SO LND 17:41 → OBSVTOIN 03-11 01:13 → 3 SO LND 03-11 03:25
PROVIDERS: ADMIT Obstetrics & Gynecology; ATTEND Obstetrics & Gynecology
PROC: 10E0XZZ Delivery of Products of Conception, External Approach (ICD-10-PCS; principal; 2022-03-11)
DX: O80 Encounter for full-term uncomplicated delivery (principal); Z37.0 Single live birth; Z3A.39 39 weeks gestation of pregnancy; Z20.822 Contact with and (suspected) exposure to COVID-19
CPT/HCPCS: 36415; 81001; 85025; 85027; 86592; 86850; 86900; 86901; 87086; 87426; 87428; G0378; G0379; J0595; J2590; J7120; U0003